=== PATIENT | female | born 2000 | race Hispanic/Latino ===

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

== ENCOUNTER 2022-04-28 21:00 | Emergency (ER) | payer MEDICAID, OTHER ==
[~2022-04-28] VITALS: Ht 160 cm; Wt 95.3 kg
[2022-04-28] MEDS ORDERED: MORPHINE 4 MG SYG IVP ONE (21:30)
[2022-04-28] MEDS ORDERED: 0.9%NACL 1000ML 1,000 ML IV ONE (21:30)
[2022-04-28] MEDS ORDERED: ONDANSETRON 4MG INJ IVP ONE (21:30)
[2022-04-28] MEDS ORDERED: KETOROLAC 15MG/ML VIAL (15MG/ML) IV ONE (21:30)
[2022-04-28 21:32] VITALS: BP 114/64
[2022-04-28 21:32] LABS: BASOPHILS % (AUTO) 0.4 % (0.0-5.0); EOSINOPHILS % (AUTO) 2.3 % (0.0-8.0); HEMATOCRIT 35.7 % (36-48); LYMPHOCYTES % (AUTO) 21.7 % (21.0-51.0); MEAN CORPUSCULAR HEMOGLOBIN 20.9 pg (27.0-33.0); MEAN CORPUSCULAR HGB CONC 29.7 g/dL (32.0-36.0); MEAN CORPUSCULAR VOLUME 70.3 fL (79-99); MONOCYTES % (AUTO) 7.5 % (3.0-13.0); NEUTROPHILS % (AUTO) 67.8 % (40.0-77.0); PLATELET COUNT (AUTO) 349 K/uL (130-400); RED BLOOD CELL COUNT(AUTO) 5.08 MIL/uL (4.00-5.50); RED CELL DISTRIBUTION WIDTH 16.6 % (11.0-15.5); WHITE BLOOD COUNT (AUTO) 11.7 K/uL (4.8-10.8)
[2022-04-28 21:34] LABS: APPEARANCE,URINE CLEAR (CLEAR); BILIRUBIN,URINE NEGATIVE (NEGATIVE); COLOR,URINE YELLOW (YELLOW); GLUCOSE, URINE (UA) NEGATIVE (NEGATIVE); KETONES,URINE NEGATIVE (NEGATIVE); LEUKOCYTE ESTERASE ,URINE 25 Leu/uL (NEGATIVE); NITRATE,URINE NEGATIVE (NEGATIVE); OCCULT BLOOD,URINE NEGATIVE (NEGATIVE); PROTEIN,URINE NEGATIVE (NEGATIVE); UROBILINOGEN,URINE 0.2 mg/dL (0.2-1.0)
[2022-04-28 21:38] LABS: MUCUS,URINE MOD LPF (None Seen); SQUAMOUS EPITHELIAL CELL,UR RARE /HPF (0-2)
[2022-04-28 21:39] LABS: HCG,QUALITATIVE URINE NEGATIVE (NEGATIVE)
[2022-04-28 21:47] LABS: CREATININE 0.7 mg/dL (0.5-1.5); POTASSIUM 3.3 mmol/L (3.5-5.1)
[2022-04-28 21:52] LABS: ALBUMIN 3.4 g/dL (3.5-5.0); TOTAL PROTEIN, SERUM 7.7 g/dL (6.0-8.3)
[2022-04-28] MEDS ORDERED: ZOSYN 3.375GM +NS 50ML IV ONE (22:00)
[2022-04-28] MEDS ORDERED: IOHEXOL 350 MG/ML 100ML INFUS..BTL IV ONE (22:52)
[2022-04-28] MEDS ORDERED: NAPR500T6 PO (23:26)
[2022-04-28] MEDS ORDERED: CEPH500B PO (23:26)
== END 2022-04-29 00:16 | disposition home or self-care (01) ==
LOC: EDH 21:00
DX: N39.0 Urinary tract infection, site not specified (principal); Z90.721 Acquired absence of ovaries, unilateral
CPT/HCPCS: 99285; 74177; 96365; 96375; 76856; 80053; 83690; 85025; 87077; 87088; 87186; 81001; 81025; 36415; J7030; J2405; J2270; J2543; J1885; Q9967

== ENCOUNTER 2023-07-13 11:39 | Emergency (ER) | payer OTHER ==
[~2023-07-13] VITALS: Ht 162.6 cm; Wt 95.3 kg
[~2023-07-13 11:39] MED LIST: CEPH500B PO; NAPR500T6 PO
[2023-07-13 12:30] VITALS: BP 134/82; PULSE 95; RESP 16; O2SAT 98
[2023-07-13] MEDS ORDERED: IBUP-2070 PO (15:36)
[2023-07-13] MEDS ORDERED: IBUPROFEN 800 MG TAB PO ONE (16:00)
== END 2023-07-13 15:52 | disposition home or self-care (01) ==
LOC: EDH 11:39
DX: S80.211A Abrasion, right knee, initial encounter (principal); Z79.899 Other long term (current) drug therapy; Z98.890 Other specified postprocedural states; W18.39XA Other fall on same level, initial encounter; Y93.89 Activity, other specified; Y92.89 Other specified places as the place of occurrence of the external cause; Y99.8 Other external cause status
CPT/HCPCS: 73562

== ENCOUNTER 2024-08-02 23:51 | Emergency (ER) | payer BC ==
[~2024-08-02] VITALS: Ht 162.6 cm; Wt 109.3 kg
[~2024-08-02 23:51] MED LIST changes: +IBUP-2070 PO; +NAPR-1506 PO; -NAPR500T6 PO
[2024-08-03] MEDS: 0.9%NACL 1000ML 1,000 ML IV ONE (00:26)
[2024-08-03] MEDS: morPHINE 4 MG SYG IVP ONE (00:26)
[2024-08-03] MEDS: ondanSETRON 4MG INJ IVP ONE (00:26)
[2024-08-03 00:31] LABS: CARBON DIOXIDE 31 mmol/L (21-32); CHLORIDE 103 mmol/L (101-111); CREATININE 0.8 mg/dL (0.5-1.0); GLOMERULAR FILTR. RATE CALC 104 mL/min (>90); GLUCOSE,RANDOM 98 mg/dL (70-105); POTASSIUM 3.6 mmol/L (3.5-5.1); SODIUM SERUM 141 mmol/L (136-145); UREA NITROGEN, BLOOD 14 mg/dL (7-18)
[2024-08-03 00:32] LABS: APPEARANCE,URINE TURBID (CLEAR); BILIRUBIN,URINE NEGATIVE (NEGATIVE); COLOR,URINE YELLOW (YELLOW); GLUCOSE, URINE (UA) NEGATIVE (NEGATIVE); KETONES,URINE 5 mg/dL (NEGATIVE); LEUKOCYTE ESTERASE ,URINE 250 Leu/uL (NEGATIVE); NITRATE,URINE NEGATIVE (NEGATIVE); OCCULT BLOOD,URINE NEGATIVE (NEGATIVE); PH,URINE 5.5 (5.0-8.0); PROTEIN,URINE 20 mg/dL (NEGATIVE); UROBILINOGEN,URINE 0.2 mg/dL (0.2-1.0)
[2024-08-03 00:33] LABS: ADD UA MICROSCOPIC YES
[2024-08-03 00:34] LABS: HCG,QUALITATIVE URINE NEGATIVE (NEGATIVE)
[2024-08-03 00:36] LABS: ALANINE AMINOTRANSFERASE 38 U/L (12-78); ALBUMIN 3.3 g/dL (3.5-5.0); ASPARTATE AMINOTRANSFERASE 16 U/L (10-37); BILIRUBIN,DIRECT < 0.1 mg/dL (0.0-0.3); BILIRUBIN,TOTAL 0.2 mg/dL (0.2-1.0); TOTAL PROTEIN, SERUM 7.8 g/dL (6.0-8.3)
--- NOTE | 2024-08-03 00:42 | ERN ---
ED Note History of Present Illness Stated Complaint: C/O LOWER ABD PAIN RADIATING TO BACK Chief Complaint: Abdominal Pain Time Seen by MD: 23:55 Time Seen by Midlevel: 23:55 Dictation: The patient is a 24-year-old with history of , ectopic who presents to the emergency department with complaints of lower abdominal pain associated with nausea, nonbloody vomiting, nonbloody diarrhea onset yesterday. Patient denies any fevers, vaginal bleeding or urinary discomfort. Allergies: Coded Allergies: No Known Drug Allergies (Unverified Allergy, Unknown, 12/15/17) Home Meds Active Scripts Dicyclomine HCl (Bentyl) 20 Mg Tab, 1 TAB PO TID for irritable bowel symptoms for 10 Days, #30 TAB 0 Refills Prov:QUE NGUYENLEN [facility] 08/03/24 Ondansetron (Ondansetron Odt) 4 Mg Tab.rapdis, 4 MG PO Q6HPRN PRN for nausea, #16 TAB 0 Refills Prov:QUE NGUYENLEN [facility] 08/03/24 Nitrofurantoin Monohyd/M-Cryst (Macrobid 100 mg Capsule) 100 Mg Capsule, 1 CAP PO BID for 5 Days, #10 CAP 0 Refills Prov:NGUYENQUEYULI [facility] 08/03/24 Ibuprofen (Ibuprofen) 600 Mg Tablet, 600 MG PO Q6H PRN for PAIN, #30 TAB Prov:GEORGE ESTRELLA V [employer] TRA[employer] 07/13/23 Naproxen (Naproxen) 500 Mg Tablet.dr, 500 MG PO BIDPC, #15 TAB Prov:SERGO CAST [facility] 04/28/22 Cephalexin Monohydrate (Keflex) 500 Mg Cap, 500 MG PO TID, #21 CAP Prov:SERGO CAST [facility] 04/28/22 Past Medical History Past Medical History: No Pertinent History Surgical History: Surgical History Other: D & C X 2 LMP: Jul 17, 2024 RN Note Reviewed/Agreed w/PFSH: Yes Review of System Dictation Constitutional: Negative for fever,chills, and weight loss Eyes: Negative for injury, pain,redness, and discharge ENT: Negative for injury,pain or swelling Cardiovascular: Negative for chest pain, palpitations, and edema Respiratory: Negative for shortness of breath, cough, and wheezing, Abdomen/GI: Negative for constipation positive for abdominal pain, nausea, vomiting, diarrhea, and Back: Negative for injury and pain : Negative for injury, bleeding and discharge MS/Extremity: Negative for injury and deformity Skin: Negative for rash, and discoloration Neuro: Negative for headache, weakness, numbness, tingling, and seizure Psych: Negative for suicide ideation, homicidal ideation, and hallucinations Initial Vital Sign VS Vital Signs Date Time Temp Pulse Resp B/P (MAP) Pulse Ox O2 Delivery O2 Flow Rate FiO2 08/02/24 23:53 98.1 82 20 122/77 99 Room Air 08/03/24 00:18 0 21 Physical Exam Dictation Vital Signs reviewed General Appearance: Alert, oriented x 3, no acute distress, well developed, nourished. Head and Face: non-traumatic. Eyes: PERRL, pink conjunctivas, eyelid no trauma, anterior chamber with arcus senilis. Ears: Pinnas intact and no signs of trauma or erythema ear canals clear and no discharge TM no erythema Nose: No discharge, no bleeding. Oropharynx: Mouth normal, tongue pink. pharynx clear,no erythema, tonsils no exudates, no abscesses noted, mucous membrane moist Neck: Supple, non-tender, no thyromegaly, no masses, no JVD, no bruits Breast:Deferred Chest:No tenderness, no crepitus, no paradoxical movement, no retractions Lungs:Clear, well-ventilated, symmetric, no rales, no wheezing, no rhonchi, no stridor, good breath sounds bilaterally Heart: Regular rate, regular rhythm, no murmur, no gallops Vascular: no peripheral edema, Abdomen: Soft, positive bowel sounds, nondistended, no guarding, lower abd tenderness., no rebound, no masses no hepatomegaly, no splenomegaly, no Stevens's sign, no hernias. Rectal: Deferred Genital: Deferred Neurological: Normal speech, motor function intact, sensory function intact Musculoskeletal: Neck nontender, full range of motion, back nontender, full range of motion, Extremities: nontender, full range of motion Skin: Color pink, dry, no turgor, no rash, no lacerations, no abrasions, no contusions. Lymphatic: Deferred Results (Laboratory/Radiology) Laboratory/Radiology Laboratory Tests Test 08/03/24 00:03 08/03/24 00:15 Urine Color YELLOW (YELLOW) Urine Appearance TURBID (CLEAR) Urine pH 5.5 (5.0-8.0) Urine Specific [place] 1.035 (1.001-1.031) Urine Protein 20 mg/dL (NEGATIVE) H Urine Glucose (UA) NEGATIVE mg/dL (NEGATIVE) Urine Ketones 5 mg/dL (NEGATIVE) H Urine Occult Blood NEGATIVE (NEGATIVE) Urine Nitrate NEGATIVE (NEGATIVE) Urine Bilirubin NEGATIVE mg/dL (NEGATIVE) Urine Urobilinogen 0.2 mg/dL (0.2-1.0) Urine Leukocyte Esterase 250 Colin/uL (NEGATIVE) H Urine RBC 6-10 /HPF (0-1) H Urine WBC 11-25 /HPF (0-1) H Urine Squamous Epithelial Cells MANY /HPF (0-2) Urine Bacteria None /HPF (None Seen) Urine HCG, Qualitative NEGATIVE (NEGATIVE) White Blood Count 10.0 K/uL (4.8-10.8) Red Blood Count 4.90 MIL/uL (4.00-5.50) Hemoglobin 11.4 g/dL (12.0-16.0) L Hematocrit 37.5 % (36-48) Mean Corpuscular Volume 76.5 fL (79-99) L Mean Corpuscular Hemoglobin 23.3 pg (27.0-33.0) L Mean Corpuscular Hemoglobin Concent 30.4 g/dL (32.0-36.0) L Red Cell Distribution Width 14.6 % (11.0-15.5) Platelet Count 369 K/uL (130-400) Mean Platelet Volume 9.4 fL (7.5-10.5) Immature Granulocyte % (Auto) 0.4 % (0-1) Neutrophils (%) (Auto) 60.7 % (40.0-77.0) Lymphocytes (%) (Auto) 26.6 % (21.0-51.0) Monocytes (%) (Auto) 8.3 % (3.0-13.0) Eosinophils (%) (Auto) 3.6 % (0.0-8.0) Basophils (%) (Auto) 0.4 % (0.0-5.0) Neutrophils # (Auto) 6.0 K/uL (1.8-7.7) Lymphocytes # (Auto) 2.7 K/uL (1.0-4.8) Monocytes # (Auto) 0.8 K/uL (0.1-1.0) Eosinophils # (Auto) 0.36 K/uL (0.00-0.70) Basophils # (Auto) 0.04 K/uL (0.00-0.20) Absolute Immature Granulocyte (auto 0.04 K/uL (0-1) Nucleated Red Blood Cells 0.0 % (0.0-0.19) Red Blood Cell Morphology See comments Sodium Level 141 mmol/L (136-145) Potassium Level 3.6 mmol/L (3.5-5.1) Chloride Level 103 mmol/L (101-111) Carbon Dioxide Level 31 mmol/L (21-32) Blood Urea Nitrogen 14 mg/dL (7-18) Creatinine 0.8 mg/dL (0.5-1.0) Glomerular Filtration Rate Calc 104 mL/min (>90) Random Glucose 98 mg/dL (70-105) Total Calcium 8.8 mg/dL (8.5-10.1) Total Bilirubin 0.2 mg/dL (0.2-1.0) Direct Bilirubin < 0.1 mg/dL (0.0-0.3) Aspartate Amino Transf (AST/SGOT) 16 U/L (10-37) Alanine Aminotransferase (ALT/SGPT) 38 U/L (12-78) Alkaline Phosphatase 99 U/L (50-136) Total Protein 7.8 g/dL (6.0-8.3) Albumin 3.3 g/dL (3.5-5.0) L Lipase 28 U/L (16-77) REASON: right and left lower abd pain ORDERING PHYSICIAN: YULI NGUYEN [employer] TRAINER PROCEDURE: ABD PEL W - CT ABDOMEN/PELVIS W/CONTRAST CT ABDOMEN/PELVIS W/CONTRAST HISTORY: Abdominal pain COMPARISON: 04/28/2022 TECHNIQUE: Multiple sequential axial images of the abdomen and pelvis were obtained from the dome of the diaphragm through symphysis pubis. Patient was given 100 cc of Omnipaque through intravenous route. Oral contrast was not given. FINDINGS: No pleural effusion is seen bilaterally. There is no evidence of parenchymal disease or pulmonary nodule of the visualized lower lungs. Degenerative changes of the thoracolumbar spine are present. The heart is not enlarged. Liver is enlarged measuring 19 cm. The liver, spleen, adrenal glands and pancreas are unremarkable. There is no evidence of hydronephrosis bilaterally. No evidence of renal stone is seen. Fecal material is seen in the colon. There are normal size retroperitoneal and mesenteric lymph nodes. No ascites is seen. No CT evidence of acute appendicitis is seen. Left ovary is slightly prominent. Pelvic sidewalls are symmetric bilaterally. Bladder is poorly distended. IMPRESSION: 1. No acute findings. CT was performed with one or more following dose reduction techniques: automated exposure control, adjustment of the mA and kv according to patient's size, or use of a iterative reconstruction technique. Labs Reviewed?: Yes ED Course ED Course Orders Procedure Category Date Status Time ,Urine Test LAB 08/03/24 Complete 00:01 Urinalysis Profile LAB 08/03/24 Complete 00:01 Cbc With Differential LAB 08/03/24 Complete 00:13 0.9%Nacl 1000ml (Ns PHA 08/03/24 Complete 1000ml) 00:30 Morphine 4mg Syg PHA 08/03/24 Complete (Morphine 4mg Syg) 00:30 Ondansetron 4mg Inj PHA 08/03/24 Complete (Zofran 4mg Inj) 00:30 Lipase LAB 08/03/24 Complete 00:13 Basic Metabolic Panel LAB 08/03/24 Complete 00:13 Hepatic Function Panel LAB 08/03/24 Complete 00:13 Culture Urine ALDO 08/03/24 In Process 00:34 Ct Abdomen/Pelvis CT 08/03/24 Resulted W/Contrast 00:58 Ceftriaxone 1g Vial PHA 08/03/24 Complete (Rocephine 1g Inj) 01:00 Iohexol (Omnipaque) PHA 08/03/24 Complete 01:28 Current Medications Medications (Trade) Dose Ordered Sig/Mariza Route PRN Reason Start Time Stop Time Status Last Admin Dose Admin Ceftriaxone Sodium (ROCEphine 1G INJ) 1 gm ONCE ONCE IVPB 08/03/24 01:00 08/03/24 01:01 DC 08/03/24 01:05 Iohexol (Omnipaque) 35,000 mg STK-MED ONCE IV 08/03/24 01:28 08/03/24 01:31 DC Morphine Sulfate (morPHINE 4MG SYG) 4 mg ONCE ONCE IVP 08/03/24 00:30 08/03/24 00:31 DC 08/03/24 00:26 Ondansetron HCl (zoFRAN 4MG INJ) 4 mg ONCE ONCE IVP 08/03/24 00:30 08/03/24 00:31 DC 08/03/24 00:26 Sodium Chloride 1,000 ml @ 0 mls/hr ONCE ONCE IV 08/03/24 00:30 08/03/24 00:31 DC 08/03/24 00:26 Vital Signs Date Time Temp Pulse Resp B/P (MAP) Pulse Ox O2 Delivery O2 Flow Rate FiO2 08/03/24 02:39 98.4 77 18 135/65 99 Room Air* 0 21 08/03/24 00:18 98.4 75 18 141/71 100 Room Air* 0 21 08/02/24 23:53 98.1 82 20 122/77 99 Room Air Medical Decision Making MDM The patient is a 24-year-old with history of , ectopic who presents to the emergency department with complaints of lower abdominal pain associated with nausea, nonbloody vomiting, nonbloody diarrhea onset yesterday. Patient denies any fevers, vaginal bleeding or urinary discomfort. CBC showed leukocytosis, microcytic anemia, chemistry showed no electrolyte imbalance, negative liver enzymes, normal GFR, negative lipase urinalysis positive for leukocyte esterase. CT abdomen showed no acute pathology. Patient reports improvement in pain. Continues in no acute distress, nontoxic appearance. Differential diagnosis: Appendicitis, UTI, electrolyte imbalance, gastroenteritis Need for hospitalization: Patient does not meet criteria for hospitalization. There are no social concerns with this patient. DX & DISP Disposition: Discharge Departure Impression: Primary Impression: Gastroenteritis Additional Impression: UTI (urinary tract infection) Condition: Stable Scripts Dicyclomine HCl (Bentyl) 20 Mg Tab 1 TAB PO TID for irritable bowel symptoms for 10 Days, #30 TAB 0 Refills Prov: YULI NGUYEN [employer] TRAINER 08/03/24 Ondansetron (Ondansetron Odt) 4 Mg Tab.rapdis 4 MG PO Q6HPRN PRN for nausea, #16 TAB 0 Refills Prov: YULI NGUYEN [employer] TRA[employer] 08/03/24 Nitrofurantoin Monohyd/M-Cryst (Macrobid 100 mg Capsule) 100 Mg Capsule 1 CAP PO BID for 5 Days, #10 CAP 0 Refills Prov: YULI NGUYEN [employer] TRAINER 1/22/25 Additional Instructions: FOLLOW-UP WITH PRIMARY CARE PROVIDER IN 1 TO 2 DAYS. TAKE MEDICATIONS DIRECTED HERE IN THE EMERGENCY ROOM. OKAY TO CONTINUE HOME MEDICATIONS UNLESS OTHERWISE DISCUSSED DURING YOUR VISIT IN THE EMERGENCY ROOM TODAY. RETURN TO YOUR NEAREST EMERGENCY ROOM IF SYMPTOMS WORSEN OR IF THERE IS NO IMPROVEMENT. CALL 911 IF YOU NEED IMMEDIATE ASSISTANCE. TAKE TYLENOL OR MOTRIN [id number] NEEDED AND IF NO CONTRAINDICATIONS ARE PRESENT. INCREASE ORAL HYDRATION. A WOUND CULTURE OR URINE CULTURE WAS ORDERED HERE IN THE EMERGENCY ROOM DEPARTMENT PLEASE FOLLOW-UP WITH PRIMARY CARE PROVIDER AND ADVISE THEM TO GET REPEAT PORTS FROM OUR FACILITY. IF YOU HAD ANY WILLIAMS WRAP/SPLINTS THAT WERE APPLIED HERE, PLEASE DO NOT REMOVE THEM UNTIL YOU SEE YOUR PRIMARY CARE OR SPECIALTY. Referrals: SELF,REFERRAL (PCP) Time of Disposition: 02:18 I have reviewed the case, and I agree with, Diagnosis and Plan I performed a substantive portion of the visit. I have reviewed and personally made and approve the management plan that is documented in the notes by myself with RUSS/resident. I acknowledged full responsibility for the patient's man agement plan. YULI NGUYEN Aug 03, 2024 00:42 AGUSTÍN SIMS DO Aug 03, 2024 03:07
[2024-08-03 00:49] LABS: MUCUS,URINE FEW LPF (None Seen); SQUAMOUS EPITHELIAL CELL,UR MANY /HPF (0-2)
[2024-08-03 00:56] LABS: BASOPHILS # (AUTO) 0.04 K/uL (0.00-0.20); BASOPHILS % (AUTO) 0.4 % (0.0-5.0); EOSINOPHILS # (AUTO) 0.36 K/uL (0.00-0.70); EOSINOPHILS % (AUTO) 3.6 % (0.0-8.0); HEMATOCRIT 37.5 % (36-48); IMMATURE GRANULOCYTE ABSOLUTE 0.04 K/uL (0-1); LYMPHOCYTES # (AUTO) 2.7 K/uL (1.0-4.8); LYMPHOCYTES % (AUTO) 26.6 % (21.0-51.0); MEAN CORPUSCULAR HEMOGLOBIN 23.3 pg (27.0-33.0); MEAN CORPUSCULAR HGB CONC 30.4 g/dL (32.0-36.0); MEAN CORPUSCULAR VOLUME 76.5 fL (79-99); MONOCYTES # (AUTO) 0.8 K/uL (0.1-1.0); MONOCYTES % (AUTO) 8.3 % (3.0-13.0); NEUTROPHILS % (AUTO) 60.7 % (40.0-77.0); PLATELET COUNT (AUTO) 369 K/uL (130-400); RED CELL DISTRIBUTION WIDTH 14.6 % (11.0-15.5)
[2024-08-03] MEDS: cefTRIAXone 1G VIAL IVPB ONE (01:05)
[2024-08-03] MEDS ORDERED: IOHEXOL 350 MG/ML 100ML INFUS..BTL IV ONE (01:28)
--- NOTE | 2024-08-03 02:01 | HMCIMG ---
CT ABDOMEN/PELVIS W/CONTRAST HISTORY: Abdominal pain COMPARISON: 04/28/2022 TECHNIQUE: Multiple sequential axial images of the abdomen and pelvis were obtained from the dome of the diaphragm through symphysis pubis. Patient was given 100 cc of Omnipaque through intravenous route. Oral contrast was not given. FINDINGS: No pleural effusion is seen bilaterally. There is no evidence of parenchymal disease or pulmonary nodule of the visualized lower lungs. Degenerative changes of the thoracolumbar spine are present. The heart is not enlarged. Liver is enlarged measuring 19 cm. The liver, spleen, adrenal glands and pancreas are unremarkable. There is no evidence of hydronephrosis bilaterally. No evidence of renal stone is seen. Fecal material is seen in the colon. There are normal size retroperitoneal and mesenteric lymph nodes. No ascites is seen. No CT evidence of acute appendicitis is seen. Left ovary is slightly prominent. Pelvic sidewalls are symmetric bilaterally. Bladder is poorly distended. IMPRESSION: 1. No acute findings. CT was performed with one or more following dose reduction techniques: automated exposure control, adjustment of the mA and kv according to patient's size, or use of a iterative reconstruction technique.
[2024-08-03] MEDS ORDERED: ONDA-243 PO (02:20)
[2024-08-03] MEDS ORDERED: NITR100C4 PO (02:20)
[2024-08-03] MEDS ORDERED: DICY20TA2 PO (02:20)
[2024-08-03 02:39] VITALS: BP 135/65; PULSE 77; RESP 18; TEMP 98.5; O2SAT 99
== END 2024-08-03 02:39 | disposition home or self-care (01) ==
LOC: EDH 23:51
DX: K52.9 Noninfective gastroenteritis and colitis, unspecified (principal); N39.0 Urinary tract infection, site not specified; Z79.899 Other long term (current) drug therapy; Z98.890 Other specified postprocedural states
CPT/HCPCS: 99284; 80076; 80048; 83690; 85025; 87086; 81001; 81025; 36415; 74177; 96365; 96375; 96361; J7030; J0696; J2405; J2270; Q9967

== ENCOUNTER 2024-10-12 14:30 | Emergency (ER) | payer BC ==
[~2024-10-12] VITALS: Ht 162.6 cm; Wt 89.8 kg
[~2024-10-12 14:30] MED LIST changes: +DICY20TA2 PO; +NITR100C4 PO; +ONDA-243 PO
[2024-10-12] MEDS ORDERED: KETO10TA2 PO (14:40)
[2024-10-12] MEDS ORDERED: AMOX1TAB16 PO (14:40)
--- NOTE | 2024-10-12 14:43 | ERN ---
General Chief Complaint: Tooth Ache/Pain Stated Complaint: TOOTH ACHE Time Seen by MD: 14:33 Time Seen by Midlevel: 14:33 Source: patient History of Present Illness Initial Comments The patient is a 24-year-old female presenting to the emergency department for evaluation dental pain to her left upper molar. The pain started two days ago and has progressively worsened. She was not seen a dentist for this but states she was in the process of making an appointment. Denies any other symptoms. Denies being . Allergies: Coded Allergies: No Known Drug Allergies (Unverified Allergy, Unknown, 12/15/17) Home Meds Active Scripts Ketorolac Tromethamine (Ketorolac Tromethamine) 10 Mg Tablet, 1 TAB PO TID for pain for 5 Days, #15 TAB 0 Refills Prov:NAYELY AGUIRRE 10/12/24 Amoxicillin/Potassium Clav (Amox Tr-K Clv 875-125 mg Tab) 875 Mg-125 Mg Tablet, 1 EACH PO BID for 10 Days, #20 TAB 0 Refills Prov:NAYELY AGUIRRE 10/12/24 Dicyclomine HCl (Bentyl) 20 Mg Tab, 1 TAB PO TID for irritable bowel symptoms for 10 Days, #30 TAB 0 Refills Prov:YULI NGUYEN [facility] 08/03/24 Ondansetron (Ondansetron Odt) 4 Mg Tab.rapdis, 4 MG PO Q6HPRN PRN for nausea, #16 TAB 0 Refills Prov:YULI NGUYEN [facility] 08/03/24 Nitrofurantoin Monohyd/M-Cryst (Macrobid 100 mg Capsule) 100 Mg Capsule, 1 CAP PO BID for 5 Days, #10 CAP 0 Refills Prov:YULI NGUYEN [facility] 08/03/24 Ibuprofen (Ibuprofen) 600 Mg Tablet, 600 MG PO Q6H PRN for PAIN, #30 TAB Prov:GEORGE ESTRELLA V AUTOGRAPHER 07/13/23 Naproxen (Naproxen) 500 Mg Tablet.dr, 500 MG PO BIDPC, #15 TAB Prov:SERGO CAST AUTOGRAPHER 04/28/22 Cephalexin Monohydrate (Keflex) 500 Mg Cap, 500 MG PO TID, #21 CAP Prov:SERGO CAST AUTOGRAPHER 04/28/22 Past Medical History Past Medical History: No Pertinent History Past Surgical History: Surgical History Other: D & C X 2 ROS Dictation CONSTITUTIONAL: Negative except for HPI HEAD/FACE: Negative except for HPI EENT: Negative except for HPI RESPIRATORY: Negative except for HPI GASTROINTESTINAL/ABDOMINAL: Negative except for HPI GENITOURINARY: Negative except for HPI MUSCULOSKELETAL: Negative except for HPI INTEGUMENTARY: Negative except for HPI NEUROLOGICAL/PSYCH: Negative except for HPI HEMATOLOGIC/LYMPHATIC: Negative except for HPI All Systems Negative, Except as noted above. 13 point review of systems assessed and all negative except for above. Physical Exam Physical Exam Dictation PHYSICAL EXAM: GENERAL: alert,, awake oriented x 3 HEENT: EOMI, Sclera non icteric, moist mucosa, poor dentition, there is gingival swelling surrounding the left upper molar, multiple dental caries NECK: Supple, no JVD, trachea midline LUNGS: Clear breath sounds bilaterally. No wheezes HEART: Regular rate and rhythm. Normal S1 and S2, without murmurs ABD: Abdomen soft, nontender. Bowel sounds present EXT: No clubbing or cyanosis, NEURO: Alert and oriented to person, follows commands MDM MDM: The patient is a 24-year-old female presenting to the emergency department for evaluation dental pain to her left upper molar. The pain started two days ago and has progressively worsened. She was not seen a dentist for this but states she was in the process of making an appointment. Denies any other symptoms. Denies being . On physical examination the patient has poor dentition with multiple dental caries seen throughout. There is gingival swelling surrounding the left upper molar worrisome for a dental abscess. Patient denies being . She was given 30 mg of ketorolac IM, 1 g of Rocephin IM, and a Heth for supportive management. Patient will need to follow up with dentist outpatient for further evaluation. We will send home with Toradol and Augmentin for outpatient management. Differential diagnosis: Dental abscess, dental caries, otitis media There are no social concerns with this patient. Prescription drug management Prescriptions will include: Toradol and Augmentin Medical management and examination interpretation discussions were had by me with other qualified healthcare professionals as indicated for the patient's care. ED Course Orders Procedure Category Date Status Time Ceftriaxone 1g Vial PHA 10/12/24 Complete (Rocephine 1g Inj) 15:00 Ketorolac PHA 10/12/24 Complete Tromethamine 30mg/Ml 15:00 Hydrocodone/Apap PHA 10/12/24 Complete 5/325 (Heth 5/325mg) 15:00 Current Medications Medications (Trade) Dose Ordered Sig/Mariza Route PRN Reason Start Time Stop Time Status Last Admin Dose Admin Acetaminophen/ Hydrocodone Bitart (NORco 5/325MG) 1 tab ONCE ONCE PO 10/12/24 15:00 10/12/24 15:01 DC 10/12/24 16:21 Ceftriaxone Sodium (ROCEphine 1G INJ) 1 gm ONCE ONCE IM 10/12/24 15:00 10/12/24 15:01 DC 10/12/24 16:20 Ketorolac Tromethamine (toRADol) 30 mg ONCE ONCE IM 10/12/24 15:00 10/12/24 15:01 DC 10/12/24 16:21 Vital Signs Date Time Temp Pulse Resp B/P (MAP) Pulse Ox O2 Delivery O2 Flow Rate FiO2 10/12/24 16:28 98.8 88 18 121/78 97 Room Air* 0 21 10/12/24 14:31 98.8 93 16 123/80 96 Room Air DX & DISP Disposition: Discharge Departure Impression: Primary Impression: Dental abscess Condition: Stable Scripts Ketorolac Tromethamine (Ketorolac Tromethamine) 10 Mg Tablet 1 TAB PO TID for pain for 5 Days, #15 TAB 0 Refills Prov: NAYELY AGUIRRE 10/12/24 Amoxicillin/Potassium Clav (Amox Tr-K Clv 875-125 mg Tab) 875 Mg-125 Mg Tablet 1 EACH PO BID for 10 Days, #20 TAB 0 Refills Prov: NAYELY AGUIRRE 10/12/24 Referrals: MIKE ADKINS (PCP) Time of Disposition: 14:40 I have reviewed the case, and I agree with, Diagnosis and Plan I performed the substantive portion of the visit. I have reviewed and personally made and approve the management plan that is documented in the note by myself or the RUSS. I acknowledge for responsibility for the patient's man agement plan. NAYELY AGUIRRE Oct 12, 2024 14:43 AGUSTÍN SIMS DO Oct 13, 2024 08:28
[2024-10-12] MEDS: cefTRIAXone 1G VIAL IM ONE (16:20)
[2024-10-12] MEDS: HYDROcodone/APAP 5/325 1 TAB TABLET PO ONE (16:21)
[2024-10-12] MEDS: ketOROlac 30MG VIAL (30MG/ML) IM ONE (16:21)
[2024-10-12 16:28] VITALS: BP 121/78; PULSE 88; RESP 18; TEMP 98.8; O2SAT 97
== END 2024-10-12 16:37 | disposition home or self-care (01) ==
LOC: EDH 14:30
DX: K04.7 Periapical abscess without sinus (principal)
CPT/HCPCS: 99284; 96372 ×2; J1885; J0696

== ENCOUNTER 2024-12-22 16:27 | Emergency (ER) | payer BC ==
[~2024-12-22] VITALS: Ht 162.6 cm; Wt 95.3 kg
[~2024-12-22 16:27] MED LIST changes: +AMOX1TAB16 PO; +KETO10TA2 PO
[2024-12-22] MEDS: FAMOTIDINE 20MG VIAL IV STA (17:45)
[2024-12-22] MEDS: ondanSETRON 4MG INJ IVP STA (17:45)
[2024-12-22] MEDS: 0.9%NACL 1000ML 1,000 ML IV STA (17:45)
[2024-12-22 18:06] LABS: APPEARANCE,URINE CLOUDY (CLEAR); BILIRUBIN,URINE NEGATIVE (NEGATIVE); COLOR,URINE YELLOW (YELLOW); GLUCOSE, URINE (UA) NEGATIVE (NEGATIVE); KETONES,URINE NEGATIVE (NEGATIVE); LEUKOCYTE ESTERASE ,URINE 500 Leu/uL (NEGATIVE); NITRATE,URINE NEGATIVE (NEGATIVE); OCCULT BLOOD,URINE NEGATIVE (NEGATIVE); PH,URINE 5.5 (5.0-8.0); PROTEIN,URINE 10 mg/dL (NEGATIVE); UROBILINOGEN,URINE 0.2 mg/dL (0.2-1.0)
[2024-12-22 18:10] LABS: ADD UA MICROSCOPIC YES
[2024-12-22 18:11] LABS: BASOPHILS # (AUTO) 0.03 K/uL (0.00-0.20); BASOPHILS % (AUTO) 0.3 % (0.0-5.0); EOSINOPHILS # (AUTO) 0.51 K/uL (0.00-0.70); EOSINOPHILS % (AUTO) 5.2 % (0.0-8.0); HEMATOCRIT 40.1 % (36-48); IMMATURE GRANULOCYTE ABSOLUTE 0.04 K/uL (0-1); LYMPHOCYTES # (AUTO) 1.8 K/uL (1.0-4.8); LYMPHOCYTES % (AUTO) 18.6 % (21.0-51.0); MEAN CORPUSCULAR HEMOGLOBIN 23.4 pg (27.0-33.0); MEAN CORPUSCULAR HGB CONC 30.4 g/dL (32.0-36.0); MONOCYTES # (AUTO) 0.7 K/uL (0.1-1.0); MONOCYTES % (AUTO) 7.1 % (3.0-13.0); NEUTROPHILS # (AUTO) 6.8 K/uL (1.8-7.7); NEUTROPHILS % (AUTO) 68.4 % (40.0-77.0); PLATELET COUNT (AUTO) 324 K/uL (130-400); RED BLOOD CELL COUNT(AUTO) 5.21 MIL/uL (4.00-5.50); WHITE BLOOD COUNT (AUTO) 9.9 K/uL (4.8-10.8)
[2024-12-22 18:16] LABS: BACTERIA,URINE FEW /HPF (None Seen); MUCUS,URINE RARE LPF (None Seen); SQUAMOUS EPITHELIAL CELL,UR MOD /HPF (0-2)
[2024-12-22 18:21] LABS: CREATININE 0.7 mg/dL (0.5-1.0); POTASSIUM 3.9 mmol/L (3.5-5.1)
[2024-12-22 18:35] LABS: ALBUMIN 3.4 g/dL (3.5-5.0); BILIRUBIN,DIRECT 0.1 mg/dL (0.0-0.3); BILIRUBIN,TOTAL 0.3 mg/dL (0.2-1.0); TOTAL PROTEIN, SERUM 7.9 g/dL (6.0-8.3)
[2024-12-22] MEDS ORDERED: ONDA-243 PO (18:55)
--- NOTE | 2024-12-22 18:57 | ERN ---
ED Note History of Present Illness Stated Complaint: VOMITING/ DIARRHEA SINCE YESTERDAY Chief Complaint: Abdominal Pain Time Seen by MD: 16:30 Time Seen by Midlevel: 16:33 Dictation: 24-year-old female coming in with complaints of nausea, vomiting, diarrhea times yesterday. No blood. Allergies: Coded Allergies: No Known Drug Allergies (Unverified Allergy, Unknown, 12/15/17) Home Meds Active Scripts Ketorolac Tromethamine (Ketorolac Tromethamine) 10 Mg Tablet, 1 TAB PO TID for pain for 5 Days, #15 TAB 0 Refills Prov:NAYELY AGUIRRE 10/12/24 Amoxicillin/Potassium Clav (Amox Tr-K Clv 875-125 mg Tab) 875 Mg-125 Mg Tablet, 1 EACH PO BID for 10 Days, #20 TAB 0 Refills Prov:NAYELY AGUIRRE 10/12/24 Dicyclomine HCl (Bentyl) 20 Mg Tab, 1 TAB PO TID for irritable bowel symptoms for 10 Days, #30 TAB 0 Refills Prov:YULI NGUYEN [facility] 08/03/24 Ondansetron (Ondansetron Odt) 4 Mg Tab.rapdis, 4 MG PO Q6HPRN PRN for nausea, #16 TAB 0 Refills Prov:YULI NGUYEN [facility] 08/03/24 Nitrofurantoin Monohyd/M-Cryst (Macrobid 100 mg Capsule) 100 Mg Capsule, 1 CAP PO BID for 5 Days, #10 CAP 0 Refills Prov:YULI NGUYEN [facility] 08/03/24 Ibuprofen (Ibuprofen) 600 Mg Tablet, 600 MG PO Q6H PRN for PAIN, #30 TAB Prov:GEORGE ESTRELLA V [facility] 07/13/23 Naproxen (Naproxen) 500 Mg Tablet.dr, 500 MG PO BIDPC, #15 TAB Prov:SERGO CAST [facility] 04/28/22 Cephalexin Monohydrate (Keflex) 500 Mg Cap, 500 MG PO TID, #21 CAP Prov:SERGO CAST [facility] 04/28/22 Past Medical History Past Medical History: No Pertinent History Surgical History: Surgical History Other: D & C X 2 Review of System Dictation Constitutional: Negative for fever,chills, and weight loss Eyes: Negative for injury, pain,redness, and discharge ENT: Negative for injury,pain or swelling Cardiovascular: Negative for chest pain, palpitations, and edema Respiratory: Negative for shortness of breath, cough, and wheezing, Abdomen/GI: Complaining of nausea and vomiting, no diarrhea, and no constipation Back: Negative for injury and pain : Negative for injury, bleeding and discharge MS/Extremity: Negative for injury and deformity Skin: Negative for rash, and discoloration Neuro: Negative for headache, weakness, numbness, tingling, and seizure Psych: Negative for suicide ideation, homicidal ideation, and hallucinations Review of Systems: was completed Initial Vital Sign VS Vital Signs Date Time Temp Pulse Resp B/P (MAP) Pulse Ox O2 Delivery O2 Flow Rate FiO2 12/22/24 16:31 98.1 94 20 131/75 99 Room Air 0 12/22/24 16:40 21 Physical Exam Dictation General: awake, alert, NAD Head/Face: Normocephalic, atraumatic Eyes: PERRL, EOMI, vision at baseline ENT: oral cavity clear, TMs clear, no signs of infection Neck: Trachea midline, supple, no nuchal rigidity Cardiovascular: RRR, normal S1/S2, No MRGs, no JVD Respiratory: CTAB, no respiratory distress, No rales or wheezes Abdomen: Soft, non-tender, non-distended, normal bowel sounds, no guarding or rebound. Skin: Warm, dry, normal turgor, no rash MS/Extremity: Pulses equal, no cyanosis, neurovascular intact, FROM Neuro: COAx4, GCS 15, strength 5/5, CN 2-12 intact, normal cerebellar exam, normal gait, Psych: Normal behavior, mood, and affect normal Results (Laboratory/Radiology) Laboratory/Radiology Laboratory Tests Test 12/22/24 17:54 White Blood Count 9.9 K/uL (4.8-10.8) Red Blood Count 5.21 MIL/uL (4.00-5.50) Hemoglobin 12.2 g/dL (12.0-16.0) Hematocrit 40.1 % (36-48) Mean Corpuscular Volume 77.0 fL (79-99) L Mean Corpuscular Hemoglobin 23.4 pg (27.0-33.0) L Mean Corpuscular Hemoglobin Concent 30.4 g/dL (32.0-36.0) L Red Cell Distribution Width 15.0 % (11.0-15.5) Platelet Count 324 K/uL (130-400) Mean Platelet Volume 9.0 fL (7.5-10.5) Immature Granulocyte % (Auto) 0.4 % (0-1) Neutrophils (%) (Auto) 68.4 % (40.0-77.0) Lymphocytes (%) (Auto) 18.6 % (21.0-51.0) L Monocytes (%) (Auto) 7.1 % (3.0-13.0) Eosinophils (%) (Auto) 5.2 % (0.0-8.0) Basophils (%) (Auto) 0.3 % (0.0-5.0) Neutrophils # (Auto) 6.8 K/uL (1.8-7.7) Lymphocytes # (Auto) 1.8 K/uL (1.0-4.8) Monocytes # (Auto) 0.7 K/uL (0.1-1.0) Eosinophils # (Auto) 0.51 K/uL (0.00-0.70) Basophils # (Auto) 0.03 K/uL (0.00-0.20) Absolute Immature Granulocyte (auto 0.04 K/uL (0-1) Nucleated Red Blood Cells 0.0 % (0.0-0.19) Red Blood Cell Morphology See comments Urine Color YELLOW (YELLOW) Urine Appearance CLOUDY (CLEAR) H Urine pH 5.5 (5.0-8.0) Urine Specific [place] 1.031 (1.001-1.031) Urine Protein 10 mg/dL (NEGATIVE) H Urine Glucose (UA) NEGATIVE mg/dL (NEGATIVE) Urine Ketones NEGATIVE mg/dL (NEGATIVE) Urine Occult Blood NEGATIVE (NEGATIVE) Urine Nitrate NEGATIVE (NEGATIVE) Urine Bilirubin NEGATIVE mg/dL (NEGATIVE) Urine Urobilinogen 0.2 mg/dL (0.2-1.0) Urine Leukocyte Esterase 500 Colin/uL (NEGATIVE) H Urine RBC 2-5 /HPF (0-1) H Urine WBC 6-10 /HPF (0-1) H Urine Squamous Epithelial Cells MOD /HPF (0-2) Urine Bacteria FEW /HPF (None Seen) Sodium Level 141 mmol/L (136-145) Potassium Level 3.9 mmol/L (3.5-5.1) Chloride Level 105 mmol/L (101-111) Carbon Dioxide Level 28 mmol/L (21-32) Blood Urea Nitrogen 14 mg/dL (7-18) Creatinine 0.7 mg/dL (0.5-1.0) Glomerular Filtration Rate Calc 122 mL/min (>90) Random Glucose 95 mg/dL (70-105) Total Calcium 8.8 mg/dL (8.5-10.1) Total Bilirubin 0.3 mg/dL (0.2-1.0) Direct Bilirubin 0.1 mg/dL (0.0-0.3) Aspartate Amino Transf (AST/SGOT) 18 U/L (10-37) Alanine Aminotransferase (ALT/SGPT) 39 U/L (12-78) Alkaline Phosphatase 104 U/L (50-136) Total Protein 7.9 g/dL (6.0-8.3) Albumin 3.4 g/dL (3.5-5.0) L Lipase 20 U/L (16-77) Human Chorionic Gonadotropin, Quant 1 mIU/mL (0-5) ED Course ED Course Orders Procedure Category Date Status Time Cbc With Differential LAB 12/22/24 Complete 16:33 Basic Metabolic Panel LAB 12/22/24 Complete 16:33 Lipase LAB 12/22/24 Complete 16:33 Hepatic Function Panel LAB 12/22/24 Complete 16:33 Urinalysis Profile LAB 12/22/24 Complete 16:33 Hcg,Quantitative LAB 12/22/24 Complete 16:33 0.9%Nacl 1000ml (Ns PHA 12/22/24 In Process 1000ml) 16:33 Famotidine 20mg Vial PHA 12/22/24 Complete (Pepcid 20mg Vial) 16:33 Ondansetron 4mg Inj PHA 12/22/24 Complete (Zofran 4mg Inj) 16:33 Culture Urine ALDO 12/22/24 In Process 18:11 Current Medications Medications (Trade) Dose Ordered Sig/Mariza Route PRN Reason Start Time Stop Time Status Last Admin Dose Admin Famotidine (Pepcid 20mg Vial) 20 mg ONCE STAT IV 12/22/24 16:33 12/22/24 16:38 DC 12/22/24 17:45 Ondansetron HCl (zoFRAN 4MG INJ) 4 mg ONCE STAT IVP 12/22/24 16:33 12/22/24 16:38 DC 12/22/24 17:45 Sodium Chloride 1,000 ml @ 100 mls/hr Q10H STAT IV 12/22/24 16:33 12/23/24 02:32 12/22/24 17:45 Vital Signs Date Time Temp Pulse Resp B/P (MAP) Pulse Ox O2 Delivery O2 Flow Rate FiO2 12/22/24 17:37 98.4 93 18 123/72 100 Room Air* 0 21 12/22/24 16:40 98.1 94 20 131/75 99 Room Air* 0 21 12/22/24 16:31 98.1 94 20 131/75 99 Room Air 0 Medical Decision Making MDM MDM: 24-year-old female coming in with complaints of nausea, vomiting, diarrhea times yesterday. No blood. Blood work unremarkable. No leukocytosis, no anemia, no thrombocytopenia. No transaminitis, lipase within normal range. Discussed findings with the patient. Educated patient is probably gastroenteritis. Differential diagnosis: Pancreatitis, cholecystitis, gastroenteritis Rationale: Tests considered and ordered secondary to shared decision making include: Previous outside records reviewed: Old ER visits. Risk of complication and/or morbidity or mortality of patient management: None Medications-Per medication reconciliation Need for hospitalization: Patient does not meet criteria for hospitalization. Need for emergency major/minor surgery: No There are no social concerns with this patient. Prescription drug management Prescriptions will include symptomatic care Patient's prior external medical records from other ER visits were reviewed by me as indicated. Prior testing and results from previous visits were reviewed. Prior tests were taken into account with medical decision making and resource utilization, independent historian/historians were used to obtain complete medical history. I independently interpreted the test that were performed, results were reviewed by me and considered findings on radiology if ordered. Medical management and examination interpretation discussions were had by me with other qualified healthcare professionals as indicated for the patient's care. DX & DISP Disposition: Discharge Departure Impression: Primary Impression: Gastroenteritis Condition: Stable Scripts Ondansetron (Ondansetron Odt) 4 Mg Tab.rapdis 4 MG PO Q6HPRN PRN for nausea, #16 TAB 0 Refills Prov: CARLOS MEHTA [employer] 12/22/24 Additional Instructions: Keep hydrated, start eating small meals and increase as tolerated. Return to the hospital if any worsening symptoms. Referrals: SELF,REFERRAL (PCP) Time of Disposition: 18:53 I have reviewed the case, and I agree with, Diagnosis and Plan CARLOS MEHTA NP Dec 22, 2024 18:57
[2024-12-22 19:00] VITALS: BP 121/70; PULSE 89; RESP 18; TEMP 98.5; O2SAT 100
[2024-12-22] MEDS: ketOROlac 15MG/ML VIAL (15MG/ML) IV ONE (19:04)
[2024-12-22] MEDS ORDERED: cefTRIAXone 1G VIAL IVPB STA (19:10)
[2024-12-22] MEDS: cefTRIAXone 1G VIAL IVPB ONE (19:18)
== END 2024-12-22 19:46 | disposition home or self-care (01) ==
LOC: EDH 16:27
DX: K52.9 Noninfective gastroenteritis and colitis, unspecified (principal); R10.2 Pelvic and perineal pain; Z79.899 Other long term (current) drug therapy
CPT/HCPCS: 99284; 96374; 96375; 80076; 80048; 84702; 83690; 85025; 87086; 81001; 36415; J1885; J3490; J7030; J0696; J2405